=== PATIENT | male | born 1990 | race American Indian/Alaskan Native ===

== ENCOUNTER 2017-10-02 11:19 | Emergency (ER) | payer SELFPAY ==
[2017-10-02 11:52] VITALS: BP 118/58
== END 2017-10-02 15:00 | disposition left against medical advice (07) ==
LOC: ED 11:19
DX: J02.9 Acute pharyngitis, unspecified (principal); Z53.21 Procedure and treatment not carried out due to patient leaving prior to being seen by health care provider

== ENCOUNTER 2017-10-04 06:21 | Emergency (ER) | payer SELFPAY ==
[2017-10-04] MEDS ORDERED: TYLENOL ONE (07:47)
[2017-10-04 07:57] VITALS: BP 123/66
[2017-10-04] MEDS ORDERED: TYLENOL PO ONE (07:57)
[2017-10-04] MEDS ORDERED: BICILLIN L-A IM ONE (09:35)
[2017-10-04] MEDS ORDERED: DECADRON IM ONE (09:35)
--- NOTE | 2017-10-04 09:40 | Emergency Department Report ---
ED ENT HPI - General Chief complaint: Sore Throat Stated complaint: SORE THROAT FEVER Time Seen by Provider: 10/04/17 09:22 Source: patient Mode of arrival: Ambulatory Limitations: No Limitations - History of Present Illness Initial comments: Patient is a 27-year-old black male who is complaining of sore throat. Patient states several months ago he had strep which was treated with states that for the past 2 days pain has gotten worse. Patient states he is unable to eat or drink without pain. Patient states he has had a fever denies cough congestion and nausea vomiting or diarrhea. Severity scale (0 -10): 5 Consistency: constant - Related Data Previous Rx's Medication Instructions Recorded Last Taken Type HYDROcodone/ACETAMINOPHEN 15 ml PO Q6HR PRN #150 solution 10/04/17 Unknown Rx [Hydrocodon-Acetamin 7.5-325/15] Allergies Allergy/AdvReac Type Severity Reaction Status Date / Time NSAIDS (Non-Steroidal Allergy Angioedema Verified 10/04/17 07:57 Anti-Inflamma ED Dental HPI - General Chief complaint: Sore Throat Stated complaint: SORE THROAT FEVER Time Seen by Provider: 10/04/17 09:22 Source: patient Mode of arrival: Ambulatory Limitations: No Limitations - Related Data Previous Rx's Medication Instructions Recorded Last Taken Type HYDROcodone/ACETAMINOPHEN 15 ml PO Q6HR PRN #150 solution 10/04/17 Unknown Rx [Hydrocodon-Acetamin 7.5-325/15] Allergies Allergy/AdvReac Type Severity Reaction Status Date / Time NSAIDS (Non-Steroidal Allergy Angioedema Verified 10/04/17 07:57 Anti-Inflamma ED Review of Systems ROS: Stated complaint: SORE THROAT FEVER Other details as noted in HPI Comment: All other systems reviewed and negative ED Past Medical Hx - Past Medical History Previous Medical History?: No - Surgical History Past Surgical History?: No - Social History Smoking Status: Never Smoker Substance Use Type: Alcohol - Medications Home Medications: Home Medications Medication Instructions Recorded Confirmed Last Taken Type HYDROcodone/ACETAMINOPHEN 15 ml PO Q6HR PRN #150 solution 10/04/17 Unknown Rx [Hydrocodon-Acetamin 7.5-325/15] ED Physical Exam - General Limitations: No Limitations General appearance: alert, in no apparent distress - Head Head exam: Present: atraumatic, normocephalic - Eye Eye exam: Present: normal appearance - ENT ENT exam: Present: mucous membranes moist, other (bilateral tonsillar swelling erythema with extensive exudate. There are some palatal petechiae present as well.) - Neck Neck exam: Present: normal inspection, lymphadenopathy - Respiratory Respiratory exam: Present: normal lung sounds bilaterally. Absent: respiratory distress, wheezes, rales, rhonchi - Cardiovascular Cardiovascular Exam: Present: regular rate, normal rhythm. Absent: systolic murmur, diastolic murmur, rubs, gallop - GI/Abdominal GI/Abdominal exam: Present: soft, normal bowel sounds - Rectal Rectal exam: Present: deferred - Extremities Exam Extremities exam: Present: normal inspection - Back Exam Back exam: Present: normal inspection - Neurological Exam Neurological exam: Present: alert, oriented X3 - Psychiatric Psychiatric exam: Present: normal affect, normal mood - Skin Skin exam: Present: warm, dry, intact, normal color. Absent: rash ED Course Vital Signs 10/04/17 10/04/17 10/04/17 07:54 08:59 09:02 Temperature 102.5 F H Pulse Rate 100 H Respiratory 16 18 18 Rate Blood Pressure 123/66 O2 Sat by Pulse 100 99 Oximetry 10/04/17 09:03 Temperature Pulse Rate Respiratory 18 Rate Blood Pressure O2 Sat by Pulse Oximetry ED Medical Decision Making - Medical Decision Making Patient meets [facility] criteria for empiric treatment patient will be treated and referred to the nose and throat. Critical care attestation.: If time is entered above; I have spent that time in minutes in the direct care of this critically ill patient, excluding procedure time. ED Disposition Clinical Impression: Exudative pharyngitis Disposition: DC-01 TO HOME OR SELFCARE Is pt being admited?: No Does the pt Need Aspirin: No Condition: Stable Instructions: Pharyngitis (ED) Referrals: JULIETA THOMAS MD [Referring] - 3-5 Days
== END 2017-10-04 10:35 | disposition home or self-care (01) ==
LOC: ED 06:21
DX: J02.9 Acute pharyngitis, unspecified (principal); Z88.8 Allergy status to other drugs, medicaments and biological substances
CPT/HCPCS: 96372; 99282; J0561; J1100